=== PATIENT | female | born 1995 | race Two or more races ===

== ENCOUNTER → 2025-01-14 | Outpatient (CLI) | payer OTHER, SELFPAY ==
--- NOTE | 2025-01-14 09:25 | XR_ITS ---
Examination: Breast ultrasound, unilateral, left complete Date and time of exam: January 14, 2025 1008 hours INDICATIONS: Palpable lump inner lower left breast note is beginning one week ago Technique: Real-time mendez scale ultrasonographic imaging performed left breast including all 4 quadrants as well as nipple retroareolar and axillary region. Findings: 3:00 cyst 4 x 4 millimeter No solid nodules IMPRESSION: BI-RADS Category 2: Benign findings
== END | disposition home or self-care (01) ==
PROVIDERS: PCP Nurse Practitioner Family; Referring Provider Nurse Practitioner Family; Visit Provider Nurse Practitioner Family
DX: N63.25 Unspecified lump in the left breast, overlapping quadrants (principal)
CPT/HCPCS: 76641